=== PATIENT | male | born 1995 | race Caucasian/White ===

== ENCOUNTER 2017-11-21 09:59 | Emergency (ER) | payer OTHER ==
[2017-11-21] MEDS: NS 1,000 ML IV (10:43)
[2017-11-21] MEDS: KETOROLAC 30 MG/ML VIAL (J1885) IV (10:44)
[2017-11-21] MEDS: ONDANSETRON 4MG/2ML VIAL (J2405) IV (10:44)
[2017-11-21 10:50] LABS: BASO % 0.3 % (0.0-1.0); EOS # 0.1 10^3/uL (0.0-0.50); EOS % 0.7 % (0.0-3.0); HEMATOCRIT 46.1 % (42.0-52.0); HEMOGLOBIN 15.8 g/dl (13.5-17.5); IMMATURE GRANULOCYTE % 0.3 % (0-3.0); LYMPH % 29.5 % (24.0-44.0); MEAN CORPUSCULAR HEMOGLOBIN 29.9 pg (27.0-33.0); MEAN CORPUSCULAR HGB CONC 34.3 g/dl (32.0-36.5); MEAN CORPUSCULAR VOLUME 87.3 fl (80.0-96.0); MONO # 0.5 10^3/uL (0.0-0.8); MONO % 6.9 % (0.0-5.0); NEUTROPHILS # 4.2 10^3/uL (1.8-7.7); NEUTROPHILS % 62.3 % (36.0-66.0); PLATELET COUNT, AUTOMATED 314 10^3/uL (150-450); RED BLOOD COUNT 5.28 10^6/uL (4.30-6.10); RED CELL DISTRIBUTION WIDTH 12.6 % (11.5-14.5); WHITE BLOOD COUNT 6.8 10^3/uL (4.0-10.0)
[2017-11-21 11:19] LABS: ALBUMIN 4.5 GM/DL (3.2-5.2); ALBUMIN/GLOBULIN RATIO 1.25 (1.00-1.93); ALKALINE PHOSPHATASE 76 U/L (45-117); ALT/SGPT 55 U/L (12-78); AMYLASE 41 U/L (25-115); ANION GAP 6 MEQ/L (8-16); AST/SGOT 24 U/L (7-37); BILIRUBIN,TOTAL 0.6 MG/DL (0.2-1.0); BLOOD UREA NITROGEN 10 MG/DL (7-18); CALCIUM LEVEL 9.5 MG/DL (8.5-10.1); CARBON DIOXIDE LEVEL 30 MEQ/L (21-32); CHLORIDE LEVEL 104 MEQ/L (98-107); GLUCOSE, FASTING 92 MG/DL (70-100); LIPASE 131 U/L (73-393); POTASSIUM SERUM 4.2 MEQ/L (3.5-5.1); SODIUM LEVEL 140 MEQ/L (136-145); TOTAL PROTEIN 8.1 GM/DL (6.4-8.2)
== END 2017-11-21 12:12 | disposition home or self-care (01) ==
LOC: M ED 09:59
DX: R19.7 Diarrhea, unspecified (principal); R10.11 Right upper quadrant pain; K76.0 Fatty (change of) liver, not elsewhere classified; J45.909 Unspecified asthma, uncomplicated
CPT/HCPCS: J2405

== ENCOUNTER 2025-02-09 12:21 | Emergency (ER) | payer OTHER ==
[~2025-02-09] VITALS: Ht 175.3 cm; Wt 120.7 kg
[~2025-02-09 12:21] MED LIST: BENT10CA PO; KETO10TAB PO
[2025-02-09 16:34] VITALS: BP 140/91; TEMP 97.6; O2SAT 97
== END 2025-02-09 16:35 | disposition short-term general hospital (02) ==
LOC: M ED 12:21
DX: H21.02 Hyphema, left eye (principal); H57.13 Ocular pain, bilateral; J45.909 Unspecified asthma, uncomplicated; F12.10 Cannabis abuse, uncomplicated; Z79.2 Long term (current) use of antibiotics